=== PATIENT | female | born 1960 | race Caucasian/White ===

== ENCOUNTER → 2016-10-23 | Outpatient (CLI) | payer BC ==
[~2016-10-23] MED LIST: ASCO-296 PO; CALC-586 PO; CYAN500T37 PO; LETR2.5T4 PO; LORA-358 PO; PYRI100T61 PO; WARF4TAB36 PO
[2016-10-23 16:30] LABS: ALBUMIN 4.4 G/DL (3.5-5.0); ALBUMIN/GLOBULIN RATIO 1.6 RATIO (1.1-2.2); ALKALINE PHOSPHATASE 76 U/L (38-126); ALT (SGPT) 32 U/L (9-52); AST (SGOT) 26 U/L (14-36); TOTAL PROTEIN 7.2 G/DL (6.3-8.2)
[2016-10-23 17:54] LABS: CA 27-29 CALCULATED 27.51 U/ML (0-37.7)
== END ==
LOC: LAB 15:48
PROVIDERS: ATTEND Internal Medicine Medical Oncology
DX: C50.212 Malignant neoplasm of upper-inner quadrant of left female breast (principal); C50.412 Malignant neoplasm of upper-outer quadrant of left female breast; M54.6 Pain in thoracic spine
CPT/HCPCS: 36415; 80076; 82378; 86300